=== PATIENT | female | born 1930 | race Caucasian/White ===

== ENCOUNTER → 2019-06-14 | Outpatient (CLI) | payer MEDICARE, OTHER ==
[2019-06-14 14:41] LABS: Basophils % (A) 1 %; Eosinophils # (A) 0.1 k/uL (0-0.7); Eosinophils % (A) 1 %; HCT 45.7 % (34.0-46.0); HGB 14.4 gm/dL (11.4-16.0); Lymphocytes # (A) 1.9 k/uL (1.0-4.8); Lymphocytes % (A) 29 %; MCH 33.4 pg (25.0-35.0); MCHC 31.6 g/dL (31.0-37.0); MCV 105.9 fL (80.0-100.0); Macrocytosis Moderate; Mean Platelet Volume 7.2; Monocytes # (A) 0.4 k/uL (0-1.0); Monocytes % (A) 6 %; Neutrophils # (A) 3.9 k/uL (1.3-7.7); Neutrophils % (A) 61 %; Platelet Count 176 k/uL (150-450); RBC 4.31 m/uL (3.80-5.40); RDW 13.2 % (11.5-15.5); WBC 6.4 k/uL (3.8-10.6)
[2019-06-14 14:50] LABS: Potassium 3.6 mmol/L (3.5-5.1)
== END | disposition home or self-care (01) ==
LOC: LABPAT 13:42
PROVIDERS: ATTEND Surgery
DX: Z01.812 Encounter for preprocedural laboratory examination (principal); I71.4 Abdominal aortic aneurysm, without rupture
CPT/HCPCS: 36415; 80051; 82565; 84520; 85025

== ENCOUNTER 2019-06-21 08:48 | Inpatient (IN) | payer MEDICARE, OTHER ==
[2019-06-17 09:37] VITALS: BMI 23.6
[~2019-06-21 08:48] MED LIST: CLINDAMYCIN 900 MG in DEXTROSE 5% IN WATER 50 ML IVPB ONE; SODIUM CHLORIDE 0.9% 1,000 ML in EMPTY BAG 1 BAG IV ONE
[2019-06-21] MEDS ORDERED: METOPROLOL SUCCINATE (ER) 100 MG TAB.ER.24H PO STA (09:39)
[2019-06-21] MEDS ORDERED: METOPROLOL SUCCINATE (ER) 50 MG TAB.ER.24H PO STA (09:39)
[2019-06-21] MEDS ORDERED: hydrALAZINE HCL 20 MG/ML 1 ML VIAL ONE (11:06)
[2019-06-21] MEDS ORDERED: PROPOFOL 10 MG/ML 20 ML VIAL IV ONE (11:06)
[2019-06-21] MEDS ORDERED: NITROGLYCERIN-D5W PMX 50 MG/250 ML BOTTLE IV ONE (11:06)
[2019-06-21] MEDS ORDERED: PROTAMINE SULFATE 10 MG/ML 5 ML VIAL IV ONE (11:06)
[2019-06-21] MEDS ORDERED: LABETALOL 5 MG/ML VIAL MDV ONE (11:06)
[2019-06-21] MEDS ORDERED: HEPARIN SODIUM,PORCINE 5,000 UNIT/ML 1 ML VIAL ONE (11:06)
[2019-06-21] MEDS ORDERED: fentaNYL (PF) 50 MCG/ML 2 ML AMP ONE (11:06)
[2019-06-21] MEDS ORDERED: MIDAZOLAM 2 MG/2 ML VIAL ONE (11:06)
[2019-06-21] MEDS ORDERED: LIDOCAINE 1% INJ 10MG/ML (20 ML MDV) SQ ONE ×2 (11:32→11:48)
[2019-06-21] MEDS ORDERED: IOPAMIDOL-250 100ML BTL INTRAARTER ONE (12:58)
[2019-06-21] MEDS ORDERED: SODIUM CHLORIDE 0.9% 1,000 ML IV ONE (13:07)
[2019-06-21] MEDS ORDERED: SODIUM CHLORIDE 0.9% 1,000 ML IV SCH ×2 (13:45→14:00)
[2019-06-21] MEDS: HYDROmorphone 1 MG/ML 1 ML SYRINGE IVP ONE ×2 (13:56→14:01)
[2019-06-21 14:04] LABS: Basophils % (A) 1 %; Eosinophils % (A) 1 %; HCT 40.7 % (34.0-46.0); HGB 13.4 gm/dL (11.4-16.0); Lymphocytes # (A) 1.6 k/uL (1.0-4.8); Lymphocytes % (A) 22 %; MCH 33.6 pg (25.0-35.0); MCV 101.7 fL (80.0-100.0); Macrocytosis Slight; Mean Platelet Volume 7.3; Monocytes # (A) 0.4 k/uL (0-1.0); Monocytes % (A) 5 %; Neutrophils % (A) 70 %; Platelet Count 160 k/uL (150-450); RDW 13.3 % (11.5-15.5); WBC 7.3 k/uL (3.8-10.6)
[2019-06-21 14:47] LABS: Calcium 9.4 mg/dL (8.4-10.2)
[2019-06-21 14:48] LABS: Potassium 3.8 mmol/L (3.5-5.1)
[2019-06-21 14:56] LABS: Glucose,Whole Blood 116 mg/dL (75-99)
[2019-06-21] MEDS ORDERED: ACETAMINOPHEN TAB 325 MG TAB PO PRN (16:33)
--- NOTE | 2019-06-21 16:39 | P.PN ---
Progress Note - Text Postoperative evaluation Patient seen and examined in the ICU. Doing well. Pain is well controlled. Her right groin is soft. The dressing is dry. No evidence of hematoma. Doing well in the postoperative period, we will plan to reinitiate her Eliquis tomorrow. And hopefully discharge home if no other issues and blood pressure remains controlled. Discussed plan with patient, daughter and nurse at the bedside
--- NOTE | 2019-06-21 19:05 | P.CONS ---
History of Present Illness - Reason for Consult Consult date: 06/21/19 consulted for medical management Requesting physician: Triston Bautista - Chief Complaint consult for medical management - History of Present Illness The patient is a 88-year-old female with a history of endovascular aortic repair 12/24/18 secondary to AAA rupture several months ago that is currentlypostop day #0 after having a type I endoleak with subsequent IR endorepair of descending thoracic aorta. the patient has a history of chronic A. fib previously on DOAC with eliquis which she discontinued last Thursday prior to surgery today, just has a history of hypertension, hyperlipidemia, GERD, osteoarthritis and degenerative disc disease. Currently the patient is doing well she reports that her pain is well-controlled, initially in the PACU post surgery the patient to have elevated blood pressures and was given doses of metoprolol, that eventually normalized her blood pressure. the patient denies any chest pain, she denies shortness of breath, she denies abdominal pain nausea or vomiting. the patient had been previously complaining of diarrhea but denies any loose stools here. The patient was also previously diagnosed with hemorrhagic cystitis and has a follow-up scheduled with urology for cystoscopy. review of records indicates a benign CBC and BMPwith normal hemoglobin of 13.4, serum potassium 3.8, serum sodium 140, serum bicarb 27, BUN 16 creatinine 0.78. Review of Systems pertinent positives per HPI all other review of systems was negative Past Medical History Past Medical History: Atrial Fibrillation, GERD/Reflux, Hyperlipidemia, Hypertension, Osteoarthritis (OA) Additional Past Medical History / Comment(s): varicose veins, gets SOB, diar jong, deteriorating disk, recent admit to [facility] with blood in urine(tx with antibiotics-now cleared) History of Any Multi-Drug Resistant Organisms: None Reported Past Surgical History: Adenoidectomy, Appendectomy, Hysterectomy, Tonsillectomy Additional Past Surgical History / Comment(s): cyst rmoved from ovary, repair of AAA 12/24/18, [place] cataracts Past Anesthesia/Blood Transfusion Reactions: Blood Transfusion Reaction Additional Past Anesthesia/Blood Transfusion Reaction / Comm: "real cold feeling and bad shaking after blood transfuion after of a baby" Smoking Status: Former smoker - Past Family History Mother Family Medical History: No Reported History Medications and Allergies Home Medications Medication Instructions Recorded Confirmed Type Apixaban [Eliquis] 2.5 mg PO BID 06/17/19 06/21/19 History Ascorbic Acid [Vitamin C] 1,000 mg PO DAILY 06/17/19 06/21/19 History Calcium Carbonate [Calcium] 600 mg PO BID 06/17/19 06/21/19 History Metoprolol Succinate [Toprol XL] 50 mg PO DAILY 06/17/19 06/21/19 History Metoprolol Succinate [Toprol XL] 100 mg PO DAILY 06/17/19 06/21/19 History Multivitamins, Thera [Multivitamin 1 tab PO DAILY 06/17/19 06/21/19 History (formulary)] Furosemide [Lasix] 20 mg PO DAILY PRN 06/21/19 06/21/19 History Allergies Allergy/AdvReac Type Severity Reaction Status Date / Time Penicillins Allergy Swelling Verified 06/21/19 09:30 rubber hot water bottle Allergy skin Uncoded 06/21/19 09:30 turned red Physical Exam Vitals: Vital Signs Temp Pulse Pulse Pulse Resp BP BP 06/21/19 17:30 84 12 116/89 06/21/19 17:00 96 10 L 108/81 06/21/19 16:30 97 15 126/90 06/21/19 16:00 97.5 F L 80 18 126/90 06/21/19 15:45 84 12 06/21/19 15:30 92 17 06/21/19 15:15 93 15 128/101 06/21/19 15:00 97.7 F 84 28 H 121/90 06/21/19 14:33 77 16 132/69 06/21/19 14:16 87 16 110/131 06/21/19 14:01 84 16 130/67 06/21/19 13:45 87 14 132/71 06/21/19 13:32 96.8 F L 81 14 130/67 06/21/19 09:59 97.9 F 92 18 183/111 BP Pulse Ox 06/21/19 17:30 96 06/21/19 17:00 96 06/21/19 16:30 95 06/21/19 16:00 96 06/21/19 15:45 94 L 06/21/19 15:30 89 L 06/21/19 15:15 96 06/21/19 15:00 95 06/21/19 14:33 122/76 96 06/21/19 14:16 110/81 96 06/21/19 14:01 102/70 96 06/21/19 13:45 96 06/21/19 13:32 94 L 06/21/19 09:59 94 L Intake and Output 06/21/19 06/21/19 06/21/19 06:59 14:59 22:59 Intake Total 700 400 Output Total 500 460 Balance 200 -60 Intake: IV 700 Intake, IV Titration 400 Amount Sodium Chloride 0.9% 1, 400 000 ml @ 100 mls/hr IV . Q10H [facility] Rx#:[id number] Output: Urine 500 460 Other: Voiding Method Indwelling Catheter ABP, PAP, CO, CI - Last 8 Hours Arterial Blood Pressure 124/79 Arterial Blood Pressure 129/76 Arterial Blood Pressure 126/74 Arterial Blood Pressure 132/82 Arterial Blood Pressure 137/75 Arterial Blood Pressure 131/78 Arterial Blood Pressure 121/81 Arterial Blood Pressure 137/88 Constitutional: No acute distress, conversant, pleasant Eyes: Anicteric sclerae, moist conjunctiva, no lid-lag, PERRLA ENMT: NC/AT,Oropharynx clear, no erythema, exudates Neck:Supple, FROM, no masses, or JVD, No carotid bruits; No thyromegaly Lungs: Clear to auscultation, Clear to percussion, Normal respiratory effort, no accessory muscle use Cardiovascular: Heart regular in rate and rhythm, No murmurs, gallops, or rubs no peripheral edema Abdominal: Soft Nontender, nom distended, no guarding, no rebound or rigidity, Normoactive bowel sounds No hepatomegaly, No splenomegaly, No palpable mass No abdominal wall hernia noted Skin: Normal temperature, tone, texture, turgor, No induration No subcutaneous nodules, No rash, lesions, No ulcers Extremities:No digital cyanosis No clubbing, Pedal pulses intact and symmetrical Radial pulses intact and symmetrical Normal gait and station, No calf tenderness Psychiatric: Alert and oriented to person, place and time, Appropriate affect Intact judgement Neuro: Muscles Strength 5/5 in all 4 extremities, Sensation to light touch grossly present throughout, Cranial nerves II-XII grossly intact. 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 Patient is currently medically stable continue to monitor closely in the ICU. blood pressure parameters provided by primary service. The patient currently in atrial fibrillation, primary service is planning to restart DOAC with eliquis in the morning if medically stable. Continue to follow her clinical course I Appreciate the opportunity to be in this patient's care. Further questions please do not hesitate to contact this time patient came
[2019-06-21] MEDS: CALCIUM CARBONATE 500 MG CHEWABLE PO SCH (20:13)
--- NOTE | 2019-06-21 21:31 | P.OP ---
Date of Procedure: 06/21/19 Preoperative Diagnosis: AAA with Type Ia Endoleak Postoperative Diagnosis: same Procedure(s) Performed: 1. Right femoral artery access under ultrasound guidance 2. Type Ia endoleak repair with Aptus endoanchors 3. PTBA of aortic graft 4. Percutaneous closure device placement Implants: Aptus endoanchors Anesthesia: MAC, local Surgeon: Triston Bautista Estimated Blood Loss (ml): 20 Pathology: none sent Condition: stable Disposition: PACU Indications for Procedure: 88 year old female who underwent emergent endovascular aortic repair secondary to rupture a couple of months ago presents today for endoleak repair. Upon patients post op scans it was noted she had a type Ia endoleak with expanding aortic aneurysm now measuring 5.8cm. After long discussion with her and her family it was decided to try to intervene with endoanchors to attempt to seal the leak. Description of Procedure: After written and informed consent was obtained from the patient and all risks, benefits and complications were described she was brought to the director of cardiac cath lab and laid in a supine position. The area of the groins were prepped and draped in the usual sterile fashion after appropriate anesthetic was performed per anesthesia. Using ultrasound guidance the right femoral artery was cannulated and a 5 nigerien sheath was placed in usual fashion. .035 glidewire was then placed into the aorta followed by a pigtail catheter and multiple aortograms were obtained with many views of the aortic graft which revealed a type Ia leak which appeared to be from the posterior aspect of the graft. At that time it was decided to place endoanchors to attempt to seal the leak. Two perclose closure devices were then placed after removal of the 5 nigerien sheath in usual fashion. A 16 nigerien sheath was then placed followed by the Aptus endoanchor deployment catheter. Patient was then given heparin and followed with ACTs. 10 endoanchors were then placed in usual fashion circumferentially at the listed c- arm angles: ENGLISH 60 x 2, ENGLISH 83, ENGLISH 30, CHANDLER 60 x 2, CHANDLER 80, AP Right, AP left, and ENGLISH 45. Once completed an angiogram was obtained which demonstrated seal at the posterior aspect of the graft which previous leak was sealed but there still was a small leak present filling the aneurysm. The leak was slightly diminished. A molding balloon was then placed at the proximal graft and balloon angioplasty was performed. Final angiogram showed a small persistent leak but was improved from previous. It was decided to reverse the heparin and conclude procedure. All catheters, wires and sheaths were removed, the closure devices were deployed as well as an 8 nigerien angioseal for hemostasis. Patient tolerated the procedure well and sent to PACU for recovery.
[2019-06-22] MEDS: ASCORBIC ACID 500 MG TAB PO SCH (08:04)
[2019-06-22] MEDS: MULTIVITAMINS, THERA 1 EACH TAB PO SCH (08:04)
[2019-06-22] MEDS: CALCIUM CARBONATE 500 MG CHEWABLE PO SCH ×2 (08:04→21:46)
[2019-06-22] MEDS: METOPROLOL SUCCINATE (ER) 50 MG TAB.ER.24H PO SCH (08:04)
[2019-06-22] MEDS ORDERED: METOPROLOL SUCCINATE (ER) 100 MG TAB.ER.24H PO SCH (09:00)
[2019-06-22 10:49] LABS: Basophils % (A) 0 %; Eosinophils % (A) 0 %; HCT 37.4 % (34.0-46.0); HGB 11.9 gm/dL (11.4-16.0); Lymphocytes % (A) 14 %; MCH 33.2 pg (25.0-35.0); MCHC 31.9 g/dL (31.0-37.0); MCV 104.2 fL (80.0-100.0); Macrocytosis Slight; Mean Platelet Volume 6.9; Monocytes # (A) 0.4 k/uL (0-1.0); Monocytes % (A) 5 %; Neutrophils # (A) 5.8 k/uL (1.3-7.7); Neutrophils % (A) 79 %; Platelet Count 130 k/uL (150-450); RBC 3.59 m/uL (3.80-5.40); RDW 13.4 % (11.5-15.5); WBC 7.4 k/uL (3.8-10.6)
[2019-06-22 10:54] LABS: African American GFR (CKD) >90 (>60 ml/min/1.73 sqM); Anion Gap 9 mmol/L; Blood Urea Nitrogen 11 mg/dL (7-17); Calcium 8.7 mg/dL (8.4-10.2); Carbon Dioxide 27 mmol/L (22-30); Chloride 104 mmol/L (98-107); Glucose 121 mg/dL (74-99); Potassium 3.1 mmol/L (3.5-5.1); Sodium 140 mmol/L (137-145)
[2019-06-22] MEDS ORDERED: hydrALAZINE HCL 25 MG TAB PO STA (12:01)
[2019-06-22] MEDS: POTASSIUM CHLORIDE ER 20 MEQ TAB.ER PO SCH ×2 (12:20→15:37)
--- NOTE | 2019-06-22 13:16 | P.DS ---
Providers Date of admission: 06/21/19 08:48 Attending physician: Triston Bautista DO Consults: 06/21/19 05:45 Consult to Anesthesia Routine Consulting Provider: Anesthesia,Services Consult Reason/Comments: General anesthesia for Aortic Stent procedure 06/21/19 16:30 Consult Physician Routine Consulting Provider: Lucas Dong Consult Reason/Comments: medical management Do you want consulting provider notified?: Yes Primary care physician: [facility] Course: Pt s/e on pod#1 from percutaneous endovascular endoleak repair. She is doing well postoperatively, denies CP/SOB. Pain is controlled. BP is controlled. She has ambulated to the bathroom. She is in satisfactory condition for discharge home. She will continue to hold her Eliquis until after her urologic procedure later this week. She will follow up with Dr Bautista in 10-14 days. Plan - Discharge Summary Discharge Rx Participant: No New Discharge Prescriptions: No Action Metoprolol Succinate [Toprol XL] 50 mg PO DAILY Metoprolol Succinate [Toprol XL] 100 mg PO DAILY Apixaban [Eliquis] 2.5 mg PO BID Multivitamins, Thera [Multivitamin (formulary)] 1 tab PO DAILY Ascorbic Acid [Vitamin C] 1,000 mg PO DAILY Calcium Carbonate [Calcium] 600 mg PO BID Furosemide [Lasix] 20 mg PO DAILY PRN PRN Reason: swelling Discharge Medication List Apixaban [Eliquis] 2.5 mg PO BID 06/17/19 [History] Ascorbic Acid [Vitamin C] 1,000 mg PO DAILY 06/17/19 [History] Calcium Carbonate [Calcium] 600 mg PO BID 06/17/19 [History] Metoprolol Succinate [Toprol XL] 50 mg PO DAILY 06/17/19 [History] Metoprolol Succinate [Toprol XL] 100 mg PO DAILY 06/17/19 [History] Multivitamins, Thera [Multivitamin (formulary)] 1 tab PO DAILY 06/17/19 [History] Furosemide [Lasix] 20 mg PO DAILY PRN 06/21/19 [History] Follow up Appointment(s)/Referral(s): Triston Bautista DO [STAFF PHYSICIAN] - 10 Days Activity/Diet/Wound Care/Special Instructions: No restrictions. May shower. Resume activity as tolerated. Resume previous diet. Resume all home meds except eliquis until after urologic eval Discharge Disposition: HOME SELF-CARE
[2019-06-22] MEDS ORDERED: FUROSEMIDE 20 MG TAB PO PRN (13:35)
[2019-06-22] MEDS: metroNIDAZOLE 500 MG TAB PO SCH ×2 (15:37→21:46)
--- NOTE | 2019-06-22 15:55 | P.PN ---
Subjective Progress Note Date: 06/22/19 Patient seen and examined and follow-up, resting well denies any significant complaints. Blood pressure was slightly elevated, C. diff has resulted as positive Objective - Vital Signs Vital signs: Vital Signs Temp 97.9 F 06/22/19 12:00 Pulse 118 H 06/22/19 14:00 Resp 17 06/22/19 14:00 BP 115/94 06/22/19 14:00 Pulse Ox 96 06/22/19 12:00 Intake & Output 06/21/19 06/22/19 06/22/19 18:59 06:59 18:59 Intake Total 1100 1460 1020 Output Total 960 502 1 Balance 744 833 9123 Weight 64.9 kg Intake: IV 700 800 700 Sodium Chloride 0.9% 1, 800 700 000 ml @ 100 mls/hr IV . Q10H [facility] Rx#:[id number] Intake, IV Titration 400 500 Amount Sodium Chloride 0.9% 1, 400 500 000 ml @ 100 mls/hr IV . Q10H [facility] Rx#:[id number] Oral 160 320 Output: Urine 960 500 0 Stool 2 1 Other: Voiding Method Indwelling Catheter Toilet # Voids 1 1 ABP, PAP, CO, CI - Last Documented Arterial Blood Pressure 120/75 - Exam Constitutional: No acute distress, conversant, pleasant Eyes: Anicteric sclerae, moist conjunctiva, no lid-lag, PERRLA ENMT: NC/AT,Oropharynx clear, no erythema, exudates Neck:Supple, FROM, no masses, or JVD, No carotid bruits; No thyromegaly Lungs: Clear to auscultation, Clear to percussion, Normal respiratory effort, no accessory muscle use Cardiovascular: Heart regular in rate and rhythm, No murmurs, gallops, or rubs no peripheral edema Abdominal: Soft Nontender, nom distended, no guarding, no rebound or rigidity, Normoactive bowel sounds No hepatomegaly, No splenomegaly, No palpable mass No abdominal wall hernia noted Skin: Normal temperature, tone, texture, turgor, No induration No subcutaneous nodules, No rash, lesions, No ulcers Extremities:No digital cyanosis No clubbing, Pedal pulses intact and symmetrical Radial pulses intact and symmetrical Normal gait and station, No calf tenderness Psychiatric: Alert and oriented to person, place and time, Appropriate affect Intact judgement Neuro: Muscles Strength 5/5 in all 4 extremities, Sensation to light touch grossly present throughout, Cranial nerves II-XII grossly intact. No focal sensory deficits. - Labs CBC & Chem 7: 06/22/19 10:18 06/22/19 10:18 Labs: Abnormal Lab Results - Last 24 Hours (Table) 06/22/19 06/22/19 06/22/19 Range/Units 07:00 10:18 10:18 RBC 3.59 L (3.80-5.40) m/uL MCV 104.2 H (80.0-100.0) fL Plt Count 130 L (150-450) k/uL Potassium 3.1 L (3.5-5.1) mmol/L Glucose 121 H (74-99) mg/dL C. difficile (EIA) Intrp Positive A (Negative) Assessment and Plan Assessment: chronic atrial fibrillation * The patient having episodes of uncontrolled ventricular rate * Able to resume DOAC with ELiquis Type I AAA endoleak status post repair * Follow up with vascular surgery in 10 days essential hypertension * Blood pressure elevated we'll give a dose of hydralazine and recheck her blood pressure C. diff * Initiated on Flagyl therapy for the next 10 days patient instructed to follow up with her PCP * Still having episodes of diarrhea Hypokalemia * Replace per protocol likely secondary to diarrhea * Recheck labs in the morning Hyperlipidemia lumbar Osteoarthritis lumbar degenerative disc disease Disposition And is been discharged tomorrow: Recheck electrolytes and blood pressure monitoring may need home health nurse for blood pressure checks
[2019-06-22] MEDS ORDERED: DILTIAZEM 5 MG/ML 5 ML VIAL IVP STA (17:58)
[2019-06-23 04:11] VITALS: RESP 14
[2019-06-23 05:58] LABS: HCT 41.7 % (34.0-46.0); HGB 12.8 gm/dL (11.4-16.0); Hypochromasia Slight; MCH 32.6 pg (25.0-35.0); MCHC 30.7 g/dL (31.0-37.0); MCV 106.1 fL (80.0-100.0); Macrocytosis Moderate; Mean Platelet Volume 6.8; Platelet Count 120 k/uL (150-450); RBC 3.93 m/uL (3.80-5.40); RDW 13.5 % (11.5-15.5); WBC 6.2 k/uL (3.8-10.6)
[2019-06-23 06:38] LABS: African American GFR (CKD) >90 (>60 ml/min/1.73 sqM); Anion Gap 10 mmol/L; Blood Urea Nitrogen 9 mg/dL (7-17); Calcium 9.2 mg/dL (8.4-10.2); Carbon Dioxide 22 mmol/L (22-30); Chloride 107 mmol/L (98-107); Glucose 107 mg/dL (74-99); Magnesium 1.4 mg/dL (1.6-2.3); Potassium 3.6 mmol/L (3.5-5.1); Sodium 139 mmol/L (137-145)
[2019-06-23] MEDS ORDERED: Potassium Replacement Protocol 1 EACH MISC MISCELLANE PRN (06:59)
[2019-06-23] MEDS ORDERED: POTASSIUM CHLORIDE ER 20 MEQ TAB.ER PO SCH (07:00)
--- NOTE | 2019-06-23 08:01 | P.PN ---
Progress Note - Text Progress Note Date: 06/23/19 Patient seen and examined at the bedside. She was supposed be discharged last night but had some bouts of tachycardia and hypertension and therefore she was kept for further monitoring. She will see cardiology this morning for any changes in her medications. Currently she states she feels great and has no complaints at this time. She denies any headaches, fevers, chills, chest pain or shortness of breath. She did have a positive C. diff culture which she is currently being treated with Flagyl. Vital signs demonstrates A. fib with tachycardia bouncing from low 100s to 130s. Blood pressure is stable. Right femoral access site is clean, dry and intact without any signs or hematoma. Palpable pulse noted. Impression: 1. AAA status post endovascular aortic repair with type IA endoleak postop day 2 of endoleak repair. 2. Atrial fibrillation 3. Hypertension 4. C. diff colitis Plan: - Okay to restart OAC Patient did have an appointment in [place] for cystoscopy by her urologist but that has since been canceled. Continue Flagyl for the C. diff. Okay from a vascular standpoint for discharge once cardiology clears patient.
[2019-06-23] MEDS: METOPROLOL SUCCINATE (ER) 50 MG TAB.ER.24H PO SCH (08:10)
[2019-06-23] MEDS: metroNIDAZOLE 500 MG TAB PO SCH ×2 (08:10→16:32)
[2019-06-23] MEDS: CALCIUM CARBONATE 500 MG CHEWABLE PO SCH (08:10)
[2019-06-23] MEDS: ASCORBIC ACID 500 MG TAB PO SCH (08:10)
[2019-06-23] MEDS: MULTIVITAMINS, THERA 1 EACH TAB PO SCH (08:10)
[2019-06-23] MEDS: MAGNESIUM SULFATE-D5W PMX 1 GM in DEXTROSE/WATER 1 100ML.BAG IVPB SCH ×3 (08:13→11:35)
[2019-06-23] MEDS ORDERED: APIXABAN 2.5 MG TABLET PO SCH (09:00)
--- NOTE | 2019-06-23 09:19 | IR ---
EXAMINATION TYPE: IR endorepair dscnd thor aorta DATE OF EXAM: 06/21/2019 COMPARISON: NONE HISTORY: Fluoroscopy time. Fluoroscopy was provided to the referring clinician.
[2019-06-23 09:20] VITALS: TEMP 98
--- NOTE | 2019-06-23 11:06 | P.PN ---
Subjective Progress Note Date: 06/23/19 Principal diagnosis: aaa feels fine today , no cp no sob , no n/v no abd pain Objective - Vital Signs Vital signs: Vital Signs Temp 98 F 06/23/19 06:00 Pulse 134 H 06/23/19 08:00 Resp 14 06/23/19 08:00 BP 140/104 06/23/19 08:00 Pulse Ox 93 L 06/23/19 08:00 Intake & Output 06/22/19 06/23/19 06/23/19 18:59 06:59 18:59 Intake Total 1140 100 120 Output Total 3 8 2 Balance 1137 92 118 Weight 66.2 kg Intake: IV 700 0 Sodium Chloride 0.9% 1, 700 0 000 ml @ 100 mls/hr IV . Q10H [facility] Rx#:[id number] Oral 440 100 120 Output: Urine 0 0 Stool 3 8 2 Other: Voiding Method Toilet # Voids 2 1 2 ABP, PAP, CO, CI - Last Documented Arterial Blood Pressure 120/75 - Exam constitutional: No acute distress, conversant, pleasant Eyes: Anicteric sclerae ENMT: NC/AT Neck:Supple, FROM, no masses Lungs: Clear to auscultation, Clear to percussion, Normal respiratory effort, no accessory muscle use Cardiovascular: Heart regular in rate and rhythm, No murmurs, gallops, or rubs no peripheral edema Abdominal: Soft Nontender, non distended, no guarding Skin: Normal temperature, tone, texture, turgor, No induration Extremities:No digital cyanosis No clubbing Psychiatric: Alert and oriented to person, place and time Neuro: Muscles Strength 5/5 in all 4 extremities, Sensation to light touch g rossly present throughout, Cranial nerves II-XII grossly intact. No focal sensory deficits. - Labs CBC & Chem 7: 06/23/19 05:48 06/23/19 05:48 Labs: Abnormal Lab Results - Last 24 Hours (Table) 06/22/19 06/23/19 06/23/19 Range/Units 07:00 05:48 05:48 MCV 106.1 H (80.0-100.0) fL MCHC 30.7 L (31.0-37.0) g/dL Plt Count 120 L (150-450) k/uL Glucose 107 H (74-99) mg/dL Magnesium 1.4 L (1.6-2.3) mg/dL C. difficile (EIA) Intrp Positive A (Negative) Assessment and Plan Plan: chronic atrial fibrillation * The patient having episodes of uncontrolled ventricular rate * on ELiquis Type I AAA endoleak status post repair * Follow up with vascular surgery in 10 days essential hypertension * continue current meds C. diff * Initiated on Flagyl therapy for the next 10 days patient instructed to follow up with her PCP * monitor * Hypokalemia * Replace per protocol Hyperlipidemia lumbar Osteoarthritis lumbar degenerative disc disease Disposition pt to be discharged today
--- NOTE | 2019-06-23 14:35 | P.CRDCN ---
History of Present Illness History of present illness: This is Bushra Fry PA-C dictating a consult on this patient The patient was interviewed and examined by me as well as by Dr. Christian Case discussed with Dr. 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 On June 21 she underwent a successful endovascular repair of type I AAA endoleak. She has chronic atrial fibrillation and she had some episodes of RVR with rates in the 140s yesterday. She was treated with IV diltiazem. Her rates have been better controlled today. She has been started on her home dose of metoprolol succinate 150 mg daily. Patient seen and examined resting comfortably in bed. States she did have palpitations yesterday when her rates were up but does not have any palpitations today. Pain has been we reasonably well controlled. Denies any chest pain or shortness of breath. No dizziness lightheadedness or syncope. ROS: No fevers, chills or rigors, no cough, phlegm or expectoration, no nausea, vomiting, positive for diarrhea, no hematuria, dysuria, no musculoskeletal complaints, no strokes or seizures, no skin lesions. EXAMINATION: Bedside telemetry reveals atrial fibrillation with rate in the 80s, blood pressure in the 120s systolic over 90s to low 100s diastolic, patient is afebrile, respirations 14, oxygen saturation 93% on room air Patient seen and examined resting comfortably in bed, in no acute distress Lungs with few scattered rhonchi on expiration Heart is irregular, normal S1 and S2, no murmurs noted No elevated JVD No lower extremity edema REVIEW OF LABS, ECG & MEDICAL DATA WBC 6.2, hemoglobin 12.8, platelets 120, potassium 3.6, BUN 9, creatinine 0.63, TSH 3.66 C dif is positive Past Medical History Past Medical History: Atrial Fibrillation, GERD/Reflux, Hyperlipidemia, Hypertension, Osteoarthritis (OA) Additional Past Medical History / Comment(s): varicose veins, gets SOB, diarrhea, deteriorating disk, recent admit to [facility] with blood in urine(tx with antibiotics-now cleared) History of Any Multi-Drug Resistant Organisms: None Reported Past Surgical History: Adenoidectomy, Appendectomy, Hysterectomy, Tonsillectomy Additional Past Surgical History / Comment(s): cyst rmoved from ovary, repair of AAA 12/24/18, [place] cataracts Past Anesthesia/Blood Transfusion Reactions: Blood Transfusion Reaction Additional Past Anesthesia/Blood Transfusion Reaction / Comment(s): "real cold feeling and bad shaking after blood transfuion after of a baby" Smoking Status: Former smoker - Past Family History Mother Family Medical History: No Reported History Medications and Allergies Home Medications Medication Instructions Recorded Confirmed Type Apixaban [Eliquis] 2.5 mg PO BID 06/17/19 06/21/19 History Ascorbic Acid [Vitamin C] 1,000 mg PO DAILY 06/17/19 06/21/19 History Calcium Carbonate [Calcium] 600 mg PO BID 06/17/19 06/21/19 History Metoprolol Succinate [Toprol XL] 50 mg PO DAILY 06/17/19 06/21/19 History Metoprolol Succinate [Toprol XL] 100 mg PO DAILY 06/17/19 06/21/19 History Multivitamins, Thera [Multivitamin 1 tab PO DAILY 06/17/19 06/21/19 History (formulary)] Furosemide [Lasix] 20 mg PO DAILY PRN 06/21/19 06/21/19 History metroNIDAZOLE [Flagyl] 500 mg PO TID #29 tab 06/22/19 Rx Allergies Allergy/AdvReac Type Severity Reaction Status Date / Time Penicillins Allergy Swelling Verified 06/21/19 09:30 rubber hot water bottle Allergy skin Uncoded 06/21/19 09:30 turned red Physical Exam Vitals: Vital Signs Temp Pulse Resp BP Pulse Ox 06/23/19 08:00 134 H 14 140/104 93 L 06/23/19 06:00 98 F 120 H 25 H 96 06/23/19 04:00 98.0 F 110 H 14 139/104 95 06/23/19 03:30 112 H 22 96 06/23/19 03:00 76 13 96 06/23/19 02:30 96 11 L 06/23/19 02:00 81 13 96 06/23/19 01:30 106 H 19 94 L 06/23/19 01:00 107 H 12 97 06/23/19 00:30 92 12 95 06/23/19 00:00 96 11 L 134/110 95 06/22/19 23:30 107 H 24 06/22/19 23:22 105 H 18 96 06/22/19 23:00 58 H 134/106 93 L 06/22/19 22:30 120 H 18 134/106 95 06/22/19 22:00 23 134/106 94 L 06/22/19 21:30 92 16 134/106 96 06/22/19 21:00 121 H 21 132/96 96 06/22/19 20:30 98 11 L 132/96 98 06/22/19 20:00 97.6 F 84 19 121/91 93 L 06/22/19 17:30 128 H 17 95 06/22/19 17:00 115 H 16 139/114 96 06/22/19 16:30 131 H 16 151/99 95 06/22/19 16:00 98 F 138 H 14 06/22/19 15:30 126 H 18 06/22/19 15:00 142 H 15 06/22/19 14:00 118 H 17 115/94 06/22/19 13:30 114 H 16 Intake and Output 06/22/19 06/23/19 06/23/19 22:59 06:59 14:59 Intake Total 120 100 120 Output Total 4 6 2 Balance 116 94 118 Intake: IV 0 Sodium Chloride 0.9% 1, 0 000 ml @ 100 mls/hr IV . Q10H [facility] Rx#:[id number] Oral 120 100 120 Output: Urine 0 0 Stool 4 6 2 Other: Voiding Method Toilet Toilet # Voids 1 1 2 Weight 66.2 kg Results 06/23/19 05:48 06/23/19 05:48 CBC 06/23/19 Range/Units 05:48 WBC 6.2 (3.8-10.6) k/uL RBC 3.93 (3.80-5.40) m/uL Hgb 12.8 (11.4-16.0) gm/dL Hct 41.7 (34.0-46.0) % Plt Count 120 L (150-450) k/uL Comprehensive Metabolic Panel 06/22/19 06/23/19 Range/Units 19:58 05:48 Sodium 139 (137-145) mmol/L Potassium 3.7 3.6 (3.5-5.1) mmol/L Chloride 107 (98-107) mmol/L Carbon Dioxide 22 (22-30) mmol/L BUN 9 (7-17) mg/dL Creatinine 0.63 (0.52-1.04) mg/dL Glucose 107 H (74-99) mg/dL Calcium 9.2 (8.4-10.2) mg/dL Current Medications Generic Name Dose Route Start Last Admin Trade Name Freq PRN Reason Stop Dose Admin Acetaminophen 650 mg 06/21/19 16:33 06/21/19 20:11 Tylenol Tab PO 650 mg Q6HR PRN Administration Fever and/ or Pain Apixaban 2.5 mg 06/23/19 09:00 06/23/19 10:04 Eliquis PO 2.5 mg BID DAVINA Administration Ascorbic Acid 1,000 mg 06/22/19 09:00 06/23/19 08:10 Vitamin C PO 1,000 mg DAILY DAVINA Administration Calcium Carbonate/Glycine 500 mg 06/21/19 21:00 06/23/19 08:10 Tums PO 500 mg BID DAVINA Administration Furosemide 20 mg 06/22/19 13:35 Lasix PO DAILY PRN swelling Metoprolol Succinate 150 mg 06/22/19 09:00 06/23/19 08:10 Toprol Xl PO 150 mg DAILY DAVINA Administration Metronidazole 500 mg 06/22/19 16:00 06/23/19 08:10 Flagyl PO 500 mg TID DAVINA Administration Miscellaneous Information 1 each 06/23/19 06:59 Potassium Per Protocol MISCELLANE DAILY PRN Per Protocol Protocol Multivitamins 1 each 06/22/19 09:00 06/23/19 08:10 Theragran PO 1 each DAILY DAVINA Administration Intake and Output 06/22/19 06/23/19 06/23/19 22:59 06:59 14:59 Intake Total 120 100 120 Output Total 4 6 2 Balance 116 94 118 Intake: IV 0 Sodium Chloride 0.9% 1, 0 000 ml @ 100 mls/hr IV . Q10H [facility] Rx#:[id number] Oral 120 100 120 Output: Urine 0 0 Stool 4 6 2 Other: Voiding Method Toilet Toilet # Voids 1 1 2 Weight 66.2 kg 06/23/19 05:48 06/23/19 05:48
[2019-06-23 16:50] VITALS: BP 127/98; PULSE 80
--- NOTE | 2019-06-23 18:37 | ECHOF ---
Referral Reason:AFib MEASUREMENTS -------- HEIGHT: 154.9 cm WEIGHT: 65.8 kg BP: 139/104 RVIDd: 3.3 cm (< 3.3) IVSd: 1.8 cm (0.6 - 1.1) LVIDd: 3.4 cm (3.9 - 5.3) LVPWd: 1.8 cm (0.6 - 1.1) IVSs: 2.2 cm LVIDs: 2.5 cm LVPWs: 1.8 cm LAESV Index (A-L): 72.40 ml/m Ao Diam: 3.4 cm (2.0 - 3.7) AV Cusp: 1.9 cm (1.5 - 2.6) LA Diam: 4.2 cm (2.7 - 3.8) MV EXCURSION: 20.477 mm (> 18.000) MV EF SLOPE: 136 mm/s (70 - 150) EPSS: 0.4 cm RAP: 20.00 mmHg RVSP: 63.50 mmHg FINDINGS -------- Atrial fibrillation. This was a technically adequate study. The left ventricular size is normal. There is severe concentric left ventricular hypertrophy. Ove rall left ventricular systolic function is normal with, an EF between 55 - 60 %. Left ventricular f illimg pressure cannot be estimated due to Atrial fibrillation. The right ventricle is mildly enlarged. LA is severely dilated >40 ml/m2 The right atrium is moderately enlarged. Interatrial and interventricular septum intact. Aortic valve is trileaflet and is mildly thickened. The mitral valve is normal. The mitral valve leaflets are mildly thickened. Mild mitral annular c alcification present. Mild mitral regurgitation is present. The tricuspid valve appears structurally normal. Severe tricuspid regurgitation present. There is moderate to severe pulmonary hypertension. The right ventricular systolic pressure, as measured by Doppler, is 63.50mmHg. There is no pulmonic regurgitation present. The aortic root size is normal. The inferior vena cava is dilated with no significant inspiratory collapse which is consistent estima maricel right atrial pressure of >20 mmHg. There is no pericardial effusion. CONCLUSIONS -------- 1. Atrial fibrillation. 2. This was a technically adequate study. 3. The left ventricular size is normal. 4. There is severe concentric left ventricular hypertrophy. 5. Overall left ventricular systolic function is normal with, an EF between 55 - 60 %. 6. Left ventricular fillimg pressure cannot be estimated due to Atrial fibrillation. 7. The right ventricle is mildly enlarged. 8. LA is severely dilated >40 ml/m2 9. The right atrium is moderately enlarged. 10. Interatrial and interventricular septum intact. 11. Aortic valve is trileaflet and is mildly thickened. 12. The mitral valve is normal. 13. The mitral valve leaflets are mildly thickened. 14. Mild mitral annular calcification present. 15. Mild mitral regurgitation is present. 16. The tricuspid valve appears structurally normal. 17. Severe tricuspid regurgitation present. 18. There is moderate to severe pulmonary hypertension. 19. The right ventricular systolic pressure, as measured by Doppler, is 63.50mmHg. 20. There is no pulmonic regurgitation present. 21. The aortic root size is normal. 22. The inferior vena cava is dilated with no significant inspiratory collapse which is consistent es timated right atrial pressure of >20 mmHg. 23. There is no pericardial effusion. MULTICUT LINE OPERATOR: Jenni Delacruz RDCS
== END 2019-06-23 17:04 | disposition home or self-care (01) | DRG 315 ==
LOC: 2ORMAIN 08:48 → EDSTATUS 09:00 → 2SICU 13:48
PROVIDERS: ADMIT Surgery; ATTEND Surgery
PROC: 04WY3DZ Revision of Intraluminal Device in Lower Artery, Percutaneous Approach (ICD-10-PCS; principal; 2019-06-21 11:12)
DX: T82.330A Leakage of aortic (bifurcation) graft (replacement), initial encounter (principal); A04.72 Enterocolitis due to Clostridium difficile, not specified as recurrent; I48.20 Chronic atrial fibrillation, unspecified; E78.5 Hyperlipidemia, unspecified; E87.6 Hypokalemia; I10 Essential (primary) hypertension; I71.4 Abdominal aortic aneurysm, without rupture; K21.9 Gastro-esophageal reflux disease without esophagitis; M47.816 Spondylosis without myelopathy or radiculopathy, lumbar region; M51.36 Other intervertebral disc degeneration, lumbar region; I83.90 Asymptomatic varicose veins of unspecified lower extremity; Z79.01 Long term (current) use of anticoagulants; Z79.899 Other long term (current) drug therapy; Z87.891 Personal history of nicotine dependence; Z90.710 Acquired absence of both cervix and uterus; Z88.0 Allergy status to penicillin; Z91.048 Other nonmedicinal substance allergy status; Z90.49 Acquired absence of other specified parts of digestive tract; Z87.440 Personal history of urinary (tract) infections; Z98.42 Cataract extraction status, left eye; Z98.41 Cataract extraction status, right eye; Z96.1 Presence of intraocular lens
CPT/HCPCS: 34710; 80048; 83735; 84132; 84443; 85025; 85027; 86850; 86900; 86901; 87324; 93306

== ENCOUNTER → 2019-08-11 | Outpatient (CLI) | payer MEDICARE, OTHER ==
--- NOTE | 2019-08-11 13:06 | CT ---
EXAMINATION TYPE: CT angio abdomen pelvis DATE OF EXAM: 08/11/2019 COMPARISON: None INDICATION: AAA with history of repair. DLP: 686.4 mGycm, Automated exposure control for dose reduction was used. CONTRAST: 100 mL of Isovue 370. Study performed without Oral Contrast TECHNIQUE: Axial images were obtained from above the diaphragm to the pubic rami in the axial plane a t 5 mm thick sections. Reconstructed images are reviewed on the computer in the coronal plane. FINDINGS: Limited CT sections are obtained the lung bases. The lung bases are clear. CT ABDOMEN: Liver: Normal Spleen: Normal Pancreas: Normal Adrenal glands: The adrenal glands are normal. Gallbladder: Normal Kidneys: No masses are evident. No hydronephrosis is present. No cysts are present. Delayed images were obtained through the kidneys, which remain unremarkable. Aorta: Vascular calcification is within the aorta. Large aneurysms present. This is been repaired wi th a stent graft. No endovascular leak is evident. Inferior vena cava: Normal. CT PELVIS: Loops of bowel within the abdomen and pelvis are normal. Study is performed without oral contrast limiting bowel evaluation. Scattered diverticuli are present within the sigmoid colon compatible wit h diverticulosis without acute diverticulitis. Appendix: Not Visualized Urinary bladder: Normal. Genitourinary structures: Uterus and ovaries appear to be absent. Osseous structures: No suspicious lytic or sclerotic lesions. IMPRESSIONS: 1. Prior aortic aneurysm repair with stent. No endovascular leak is evident.
== END | disposition home or self-care (01) ==
LOC: RADCTMAIN 10:02
PROVIDERS: ATTEND Surgery
DX: I71.4 Abdominal aortic aneurysm, without rupture (principal)
CPT/HCPCS: 82565; 84520; 36415; 74174; Q9967